=== PATIENT | male | born 2000 | race Caucasian/White ===

== ENCOUNTER 2022-04-09 12:57 | Outpatient (RCR) | payer BC, SELFPAY | END 2022-11-12 13:46 | disposition home or self-care (01) | PROVIDERS: Visit Provider Family Medicine | DX: M67.819 Other specified disorders of synovium and tendon, unspecified shoulder (principal); M25.512 Pain in left shoulder; Z51.89 Encounter for other specified aftercare | CPT/HCPCS: 97110; 97162 ==